=== PATIENT | male | born 1985 | race Two or more races ===

== ENCOUNTER 2020-05-18 19:55 | Emergency (ER) | payer MEDICAID, OTHER ==
[~2020-05-18] VITALS: Ht 172.7 cm; Wt 75.3 kg
[2020-05-18 20:58] VITALS: BP 130/69
[2020-05-18] MEDS ORDERED: cefTRIAXone SOD 1,000 MG VL IM ONE (21:15)
[2020-05-18] MEDS ORDERED: AZITHROMYCIN 250 MG TAB PO ONE (21:15)
== END 2020-05-18 23:18 | disposition home or self-care (01) ==
LOC: ER 19:55
DX: Z20.2 Contact with and (suspected) exposure to infections with a predominantly sexual mode of transmission (principal); N39.0 Urinary tract infection, site not specified; R36.9 Urethral discharge, unspecified
CPT/HCPCS: 96372; 99283; J0696